=== PATIENT | male | born 1985 | race African-American/Black ===

== ENCOUNTER 2021-09-30 10:06 | Emergency (ER) | payer OTHER ==
[2021-09-30] MEDS ORDERED: METHYLPREDNISOLONE 125 MG INJ ONE (10:30)
[2021-09-30 11:27] VITALS: BP 136/88; TEMP 98; O2SAT 99
--- NOTE | 2021-10-02 09:23 | EDPHYS ---
Physician Documentation [facility] Name: Sundeep Gonzalez Age: 36 yrs Sex: Male : 1985 Arrival Date: 09/30/2021 Time: 10:09 Bed 15 Private MD: ED Physician Antoine Ga HPI: 09/30 10:32 This 36 yrs old Black Male presents to ER via Ambulatory with complaints of Allergic rn Reaction, Insect Bite. 10:32 This 36 yrs old Black Male presents to ER via Ambulatory with complaints of Allergic rn Reaction, Insect Bite. 10:32 The patient presents with localized swelling. Onset: The symptoms/episode rn began/occurred just prior to arrival. Associated signs and symptoms: Pertinent positives: swelling, Pertinent negatives: abdominal pain, chest pain, dysphagia, fever, hives, rash, shortness of breath, Syncope vomiting. Severity of symptoms: At their worst the symptoms were mild in the emergency department the symptoms are unchanged. The patient has not experienced similar symptoms in the past. The patient has not recently seen a physician. 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 No drainage. No other hives/rash/itching/sob/chest pain/vomiting.. Historical: - Allergies: 10:19 No Known Allergies; bp - Home Meds: 10:19 None [Active]; bp - PMHx: 10:19 None; bp - Immunization history:: Adult Immunizations up to date. - Social history:: Smoking status: Patient denies any tobacco usage or history of. Smoking status: Smoking status: . - Family history:: not pertinent. ROS: 10:32 Constitutional: Negative for fever, chills, and weight loss, Eyes: Negative for injury, rn pain, redness, and discharge, Neck: Negative for injury, pain, and swelling, Cardiovascular: Negative for chest pain, palpitations, and edema, Respiratory: Negative for shortness of breath, cough, wheezing, and pleuritic chest pain, Abdomen/GI: Negative for abdominal pain, nausea, vomiting, diarrhea, and constipation, Back: Negative for injury and pain, MS/Extremity: + swelling to right arm Skin: Denies rash or hives Neuro: Negative for headache, weakness, numbness, tingling, and seizure. Exam: 10:32 Constitutional: This is a well developed, well nourished patient who is awake, alert, rn and in no acute distress. Ambulatory to room without assistance or difficulty. Head/Face: Normocephalic, atraumatic. Eyes: Periorbital areas with no swelling, redness, or edema. ENT: No stridor Cardiovascular: Regular rate and rhythm. No pulse deficits. Respiratory: Speaking full sentences, unlabored. No increased work of breathing, no retractions or nasal flaring. Skin: Warm, dry, no erythema, no urticaria MS/ Extremity: Pulses equal, no cyanosis. Neurovascular intact. Full, normal range of motion. Equal circumference. 3cm area of induration and central swelling, no foreign body identified. No drainage, no streaking. Neuro: Awake and alert, GCS 15 Vital Signs: 10:18 BP 136 / 88; Pulse 70; Resp 16; Temp 98; Pulse Ox 99% ; Weight 74.84 kg; Height 6 ft. 1 bp in. (185.42 cm); 10:18 Body Mass Index 21.77 (74.84 kg, 185.42 cm) bp MDM: 10:11 Patient medically screened. rn 10:32 Differential diagnosis: localized allergic reaction, insect bite. Data reviewed: vital rn signs, nurses notes, and as a result, I will discharge patient. Counseling: I had a detailed discussion with the patient and/or guardian regarding: the historical points, exam findings, and any diagnostic results supporting the discharge/admit diagnosis, the need for outpatient follow up, to return to the emergency department if symptoms worsen or persist or if there are any questions or concerns that arise at home. Special discussion: I discussed with the patient/guardian in detail that at this point there is no indication for admission to the hospital. It is understood, however, that if the symptoms persist or worsen the patient needs to return immediately for re-evaluation. Administered Medications: 10:26 Drug: SOLU-Medrol (methylPREDNISolone sodium succinate) 125 mg Route: IM; Site: right bp gluteus; 11:05 Follow up: Response: No adverse reaction bp Disposition Summary: 09/30/21 10:37 Discharge Ordered Location: Home rn Problem: new rn Symptoms: have improved rn Condition: Stable rn Diagnosis - Insect bite (nonvenomous) of right forearm rn - Localized allergic reaction rn Followup: rn - With: Private Physician - When: As needed - Reason: Recheck today's complaints, Re-evaluation by your physician Discharge Instructions: - Discharge Summary Sheet rn - Insect Bite, Adult rn Forms: - Medication Reconciliation Form rn - Thank You Letter 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
--- NOTE | 2021-10-02 09:23 | ER ---
Nurse's Notes [facility] Name: Sundeep Gonzalez Age: 36 yrs Sex: Male : 1985 Arrival Date: 09/30/2021 Time: 10:09 Bed 15 Private MD: Diagnosis: Insect bite (nonvenomous) of right forearm;Localized allergic reaction Presentation: 09/30 10:18 Chief complaint: Patient states: INSECT STING TO R FA. Coronavirus screen: At this bp time, the client does not indicate any symptoms associated with coronavirus-19. Ebola Screen: No symptoms or risks identified at this time. Onset: The symptoms/episode began/occurred just prior to arrival. Anaphylaxis evaluation, no signs or symptoms of anaphylaxis were noted. Initial Sepsis Screen: Does the patient meet any 2 criteria? No. Patient's initial sepsis screen is negative. Does the patient have a suspected source of infection? No. Patient's initial sepsis screen is negative. Risk Assessment: Do you want to hurt yourself or someone else? Patient reports no desire to harm self or others. Onset of symptoms was September 30, 2021. 10:18 Method Of Arrival: Ambulatory bp 10:18 Acuity: JAMEY 4 bp Triage Assessment: 10:19 General: Appears in no apparent distress. comfortable, Behavior is calm, cooperative, bp appropriate for age. Pain: Complains of pain in right arm. EENT: No deficits noted. Neuro: No deficits noted. Cardiovascular: No deficits noted. Respiratory: No deficits noted. GI: No signs and/or symptoms were reported involving the gastrointestinal system. : No signs and/or symptoms were reported regarding the genitourinary system. Derm: Wound noted right arm. Musculoskeletal: No deficits noted. Historical: - Allergies: 10:19 No Known Allergies; bp - Home Meds: 10:19 None [Active]; bp - PMHx: 10:19 None; bp - Immunization history:: Adult Immunizations up to date. - Social history:: Smoking status: Patient denies any tobacco usage or history of. Smoking status: Smoking status: . - Family history:: not pertinent. Screenin:20 Abuse screen: Denies threats or abuse. Denies injuries from another. Nutritional bp screening: No deficits noted. Tuberculosis screening: No symptoms or risk factors identified. Fall Risk None identified. Assessment: 10:20 General: SEE TRIAGE NOTE. Respiratory: Airway is patent Respiratory effort is even, bp unlabored, Breath sounds are clear bilaterally. 11:00 Reassessment: PT D/C HOME AMBULATORY, DX WITH NONVENOMOUS INSECT BITE. bp Vital Signs: 10:18 BP 136 / 88; Pulse 70; Resp 16; Temp 98; Pulse Ox 99% ; Weight 74.84 kg; Height 6 ft. 1 bp in. (185.42 cm); 10:18 Body Mass Index 21.77 (74.84 kg, 185.42 cm) bp ED Course: 10:09 Patient arrived in ED. am2 10:11 Karan Becerril, RN is Primary Nurse. bp 10:11 Antoine Ga MD is Attending Physician. rn 10:19 Triage completed. bp 10:19 Arm band placed on. bp 10:20 Patient has correct armband on for positive identification. Bed in low position. Call bp light in reach. Side rails up X2. 11:00 No provider procedures requiring assistance completed. Patient did not have IV access bp during this emergency room visit. Administered Medications: 10:26 Drug: SOLU-Medrol (methylPREDNISolone sodium succinate) 125 mg Route: IM; Site: right bp gluteus; 11:05 Follow up: Response: No adverse reaction bp Medication: 10:20 VIS not applicable for this client. bp Outcome: 10:37 Discharge ordered by . rn 11:00 Discharged to home ambulatory. bp 11:00 Condition: stable 11:00 Discharge instructions given to patient, Instructed on discharge instructions, follow up and referral plans. medication usage, Demonstrated understanding of instructions, follow-up care, medications, Prescriptions given X 2. 11:05 Patient left the ED. bp Signatures: Antoine Ga MD MD rn Moreno, Amanda am2 Karan Becerril, RN RN bp
== END 2021-09-30 11:05 | disposition home or self-care (01) ==
LOC: ER 10:06
DX: S40.861A Insect bite (nonvenomous) of right upper arm, initial encounter (principal); R22.31 Localized swelling, mass and lump, right upper limb
CPT/HCPCS: 96372; 99283; J2930

== ENCOUNTER 2021-10-15 17:04 | Emergency (ER) | payer OTHER ==
--- NOTE | 2021-10-15 17:42 | ER ---
Nurse's Notes [facility] Name: Sundeep Gonzalez Age: 36 yrs Sex: Male : 1985 Arrival Date: 10/15/2021 Time: 17:06 Bed 10 Private MD: Diagnosis: Insect bite (nonvenomous) of hand Presentation: 10/15 17:39 Chief complaint: Stung by unknown insect 2-3 hours ago, c/o pain and swelling to left hb hand. 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 Coronavirus screen: At this time, the client does not indicate any symptoms associated with coronavirus-19. Ebola Screen: No symptoms or risks identified at this time. Risk Assessment: Do you want to hurt yourself or someone else? Patient reports no desire to harm self or others. Onset of symptoms was October 15, 2021. 17:39 Method Of Arrival: Ambulatory hb 17:39 Acuity: JAMEY 4 hb 17:45 Initial Sepsis Screen: Does the patient meet any 2 criteria? No. Patient's initial iw sepsis screen is negative. Does the patient have a suspected source of infection? No. Patient's initial sepsis screen is negative. Triage Assessment: 18:01 General: Behavior is calm, cooperative. iw 18:45 Bite description: bite sustained to left hand by an unknown animal, animal information: iw vaccination(s) is not applicable. 10/16 10:53 General: Appears in no apparent distress. iw Historical: - Allergies: 10/15 17:40 No Known Allergies; hb - Immunization history:: Adult Immunizations. - Social history:: Smoking status: . Screenin:00 Abuse screen: Denies threats or abuse. Denies injuries from another. Nutritional iw screening: No deficits noted. Tuberculosis screening: No symptoms or risk factors identified. Fall Risk None identified. Assessment: 17:45 General: Appears in no apparent distress. Behavior is calm, cooperative. Pain: iw Complains of pain in left hand. Neuro: Level of Consciousness is awake, alert, obeys commands, Oriented to person, place, time, situation, Moves all extremities. Full function. Derm: Skin is intact, is healthy with good turgor, Skin is pink, warm \T\ dry. normal. Musculoskeletal: Range of motion: intact in all extremities. Vital Signs: 17:39 BP 124 / 84; Pulse 67; Resp 16; Temp 98; Pulse Ox 100% on R/A; Weight 74.84 kg; Height iw 6 ft. 1 in. (185.42 cm); Pain 8/10; 17:39 Body Mass Index 21.77 (74.84 kg, 185.42 cm) iw ED Course: 17:06 Patient arrived in ED. rg4 17:08 [facility] jl9 17:08 Castro An DO is Attending Physician. jl9 17:40 Triage completed. hb 17:40 Arm band placed on. hb 17:40 Patient has correct armband on for positive identification. iw 17:51 Basia Lan, RN is Primary Nurse. iw 18:01 No provider procedures requiring assistance completed. Patient did not have IV access iw during this emergency room visit. Administered Medications: 18:01 Drug: Benadryl (diphenhydrAMINE) 50 mg Route: IM; Site: left deltoid; iw 18:20 Follow up: Response: No adverse reaction iw 18:01 Drug: SOLU-Medrol (methylPREDNISolone sodium succinate) 125 mg Route: IM; Site: right iw deltoid; 18:30 Follow up: Response: No adverse reaction iw Medication: 18:00 VIS not applicable for this client. iw Outcome: 17:42 Discharge ordered by . jovita 18:00 Condition: good iw 18:00 Discharged to home ambulatory. iw 18:00 Discharge instructions given to patient, Instructed on discharge instructions, follow up and referral plans. medication usage, Demonstrated understanding of instructions, follow-up care, Prescriptions given X 18:01 Patient left the ED. iw Signatures: Basia Lan RN RN Tomeka Covarrubias RN RN hb Garcia, Rubi [facility] Janusz Montalvo Janae Corrections: (The following items were deleted from the chart) 10/16 11:01 0816 17:39 BP 124 / 124; Pulse 67bpm; Resp 16bpm; Pulse Ox 100% RA; Temp 98F; 74.84 iw kg; Height 6 ft. 1 in.; BMI: 21.7; Pain 8/10; hb
--- NOTE | 2021-10-15 17:42 | EDPHYS ---
Physician Documentation [facility] Name: Sundeep Gonzalez Age: 36 yrs Sex: Male : 1985 Arrival Date: 10/15/2021 Time: 17:06 Bed 10 Private MD: ED Physician Castro An HPI: 10/15 17:21 This 36 yrs old Black Male presents to ER via Ambulatory with complaints of Insect jl9 Bite, Hand Swelling. 17:21 This 36 yrs old Black Male presents to ER via Unassigned with complaints of Insect Bite jl9 at work, L Hand Swelling. 17:21 Onset: The symptoms/episode began/occurred today. jl9 Historical: - Allergies: 17:40 No Known Allergies; hb - Immunization history:: Adult Immunizations. - Social history:: Smoking status: . ROS: 17:21 Constitutional: Negative for fever, chills, and weight loss, Eyes: Negative for injury, jl9 pain, redness, and discharge, ENT: Negative for injury, pain, and discharge, Neck: Negative for injury, pain, and swelling, Cardiovascular: Negative for chest pain, palpitations, and edema, Respiratory: Negative for shortness of breath, cough, wheezing, and pleuritic chest pain, Abdomen/GI: Negative for abdominal pain, nausea, vomiting, diarrhea, and constipation, Back: Negative for injury and pain, : Negative for injury, bleeding, discharge, and swelling, MS/Extremity: Negative for injury and deformity. 17:21 Neuro: Negative for headache, weakness, numbness, tingling, and seizure, Psych: Negative for depression, anxiety, suicide ideation, homicidal ideation, and hallucinations, Allergy/Immunology: Negative for hives, rash, and allergies, Endocrine: Negative for neck swelling, polydipsia, polyuria, polyphagia, and marked weight changes, Hematologic/Lymphatic: Negative for swollen nodes, abnormal bleeding, and unusual bruising. 17:21 Skin: Positive for erythema, swelling, 3x3cm localized allergic reaction/ swelling to left hand. . Exam: 17:23 Constitutional: This is a well developed, well nourished patient who is awake, alert, jl9 and in no acute distress. Head/Face: Normocephalic, atraumatic. Eyes: Pupils equal round and reactive to light, extra-ocular motions intact. Lids and lashes normal. Conjunctiva and sclera are non-icteric and not injected. Cornea within normal limits. Periorbital areas with no swelling, redness, or edema. ENT: Mucous membranes moist. Neck: Trachea midline, no thyromegaly or masses palpated, and no cervical lymphadenopathy. Supple, full range of motion without nuchal rigidity, or vertebral point tenderness. No Meningismus. Chest/axilla: Normal chest wall appearance and motion. Nontender with no deformity. No lesions are appreciated. Cardiovascular: Regular rate and rhythm with a normal S1 and S2. No gallops, murmurs, or rubs. Normal PMI, no JVD. No pulse deficits. Respiratory: Lungs have equal breath sounds bilaterally, clear to auscultation and percussion. No rales, rhonchi or wheezes noted. No increased work of breathing, no retractions or nasal flaring. Abdomen/GI: Soft, non-tender, with normal bowel sounds. No distension or tympany. No guarding or rebound. No evidence of tenderness throughout. Back: No spinal tenderness. No costovertebral tenderness. Full range of motion. 17:23 MS/ Extremity: Pulses equal, no cyanosis. Neurovascular intact. Full, normal range of motion. Neuro: Awake and alert, GCS 15, oriented to person, place, time, and situation. Cranial nerves II-XII grossly intact. Motor strength 5/5 in all extremities. Sensory grossly intact. Cerebellar exam normal. Normal gait. Psych: Awake, alert, with orientation to person, place and time. Behavior, mood, and affect are within normal limits. 17:23 Skin: Appearance: swelling, that are mild, abscess, cellulitis, induration, injury, on the left hand. Vital Signs: 17:39 BP 124 / 84; Pulse 67; Resp 16; Temp 98; Pulse Ox 100% on R/A; Weight 74.84 kg; Height iw 6 ft. 1 in. (185.42 cm); Pain 8/10; 17:39 Body Mass Index 21.77 (74.84 kg, 185.42 cm) iw MDM: 17:08 Patient medically screened. 9 17:23 Data reviewed: vital signs, nurses notes. 9 Administered Medications: 18:01 Drug: Benadryl (diphenhydrAMINE) 50 mg Route: IM; Site: left deltoid; iw 18:20 Follow up: Response: No adverse reaction iw 18:01 Drug: SOLU-Medrol (methylPREDNISolone sodium succinate) 125 mg Route: IM; Site: right iw deltoid; 18:30 Follow up: Response: No adverse reaction iw Disposition: 17:40 Co-signature as Attending Physician, Castro An DO I was immediately available on-site ms3 in the Emergency Department for consultation in the care of the patient. . Disposition Summary: 10/15/21 17:42 Discharge Ordered Location: Home jl9 Condition: Stable jl9 Diagnosis - Insect bite (nonvenomous) of hand jl9 Followup: jl9 - With: Private Physician - When: 1 - 2 days - Reason: Recheck today's complaints, Continuance of care, Re-evaluation by your physician Discharge Instructions: - Discharge Summary Sheet jl9 - Insect Bite, Adult, [id number] jl9 Forms: - Medication Reconciliation Form jl9 - Thank You Letter jl9 - Antibiotic Education jl9 - Prescription Opioid Use jl9 Signatures: Basia Lan RN RN iw Baxter, Heather, RN RN hb Sims, Marcus, DO DO ms3 Janusz Montalvo jl9
[2021-10-15] MEDS ORDERED: DIPHENHYDRAMINE 50 MG/ML VIAL ONE (18:03)
[2021-10-15] MEDS ORDERED: METHYLPREDNISOLONE 125 MG INJ ONE (18:03)
[2021-10-15 19:12] VITALS: BP 124/124; TEMP 98; O2SAT 100
== END 2021-10-15 18:01 | disposition home or self-care (01) ==
LOC: ER 17:04
DX: S60.562A Insect bite (nonvenomous) of left hand, initial encounter (principal)
CPT/HCPCS: J1200; J2930; 96372; 99283

== ENCOUNTER 2021-10-22 17:21 | Emergency (ER) | payer OTHER ==
--- NOTE | 2021-10-22 18:30 | ER ---
Nurse's Notes [facility] Name: Sundeep Gonzalez Age: 36 yrs Sex: Male : 1985 Arrival Date: 10/22/2021 Time: 17:22 Bed Waiting Private MD: Diagnosis: Insect bites Presentation: 10/22 17:34 Chief complaint: Patient states: "something has been biting me up all day at work, but [facility] I don't see what it is and now I have these whelps and they hurt" ... pt endorses these whelps all appeared today; safety team at work gave him Benadryl and ibuprofen but no relief. Last took medicine at 1400. Coronavirus screen: Vaccine status: Patient reports being unvaccinated. Client denies travel out of the [place] in the last 14 days. Ebola Screen: Patient negative for fever greater than or equal to 101.5 degrees Fahrenheit, and additional compatible Ebola Virus Disease symptoms Patient denies exposure to infectious person. Patient denies travel to an Ebola-affected area in the 21 days before illness onset. Initial Sepsis Screen: Does the patient meet any 2 criteria? No. Patient's initial sepsis screen is negative. Does the patient have a suspected source of infection? No. Patient's initial sepsis screen is negative. Risk Assessment: Do you want to hurt yourself or someone else? Patient reports no desire to harm self or others. Onset of symptoms was October 22, 2021. 17:34 Method Of Arrival: Ambulatory [facility] 17:34 Acuity: JAMEY 3 5 Triage Assessment: 17:37 Bite description: bite sustained to face, scalp, right eye and right arm by an unknown [facility] animal, animal information: vaccination(s) is not applicable. General: Appears in no apparent distress. slender, well groomed, Behavior is calm, cooperative, appropriate for age. Pain: Complains of pain in face, scalp and right arm. Historical: - Allergies: 17:37 No Known Allergies; [facility] - Home Meds: 17:37 None [Active]; [facility] - Immunization history:: Adult Immunizations up to date. - Social history:: Smoking status: Patient denies any tobacco usage or history of. Screenin:38 Abuse screen: Denies threats or abuse. Denies injuries from another. Nutritional [facility] screening: No deficits noted. Tuberculosis screening: No symptoms or risk factors identified. Fall Risk None identified. Vital Signs: 17:34 BP 165 / 72; Pulse 84; Resp 16; Temp 98.8; Pulse Ox 100% ; Weight 74.84 kg; Height 6 [facility] ft. 1 in. (185.42 cm); Pain 10/10; 17:34 Body Mass Index 21.77 (74.84 kg, 185.42 cm) [facility] ED Course: 17:22 Patient arrived in ED. am2 17:37 Triage completed. [facility] 17:37 Arm band placed on right wrist. [facility] 17:38 No provider procedures requiring assistance completed. [facility] 17:40 Anuj Haines PA is PHCP. [facility] 17:40 Cristian Wilcox MD is Attending Physician. [facility] 19:17 Tomeka Covarrubias, RN is Primary Nurse. Administered Medications: No medications were administered Outcome: 18:30 Discharge ordered by MD. [facility] 19:38 Patient left the ED. [facility] Signatures: Anuj Haines PA PA Tomeka Nelson, RN RN Latonya Causey am2 Missy Pastrana, RN RN [facility]
--- NOTE | 2021-10-22 18:30 | EDPHYS ---
Physician Documentation [facility] Name: Sundeep Gonzalez Age: 36 yrs Sex: Male : 1985 Arrival Date: 10/22/2021 Time: 17:22 Bed Waiting Private MD: ED Physician Cristian Wilcox HPI: 10/22 17:55 This 36 yrs old Black Male presents to ER via Ambulatory with complaints of Insect Bite jmm - arm/back of neck/face/head. 17:55 36-year-old male with no chronic medical condition presents emerged part with multiple jmm insect bites to the arms face and the scalp. Patient states it is painful and also describes the discomfort as itchy. Denies fever or chills. Denies vomiting.. Historical: - Allergies: 17:37 No Known Allergies; [facility] - Home Meds: 17:37 None [Active]; [facility] - Immunization history:: Adult Immunizations up to date. - Social history:: Smoking status: Patient denies any tobacco usage or history of. ROS: 17:55 Constitutional: Negative for fever, chills, and weight loss, Cardiovascular: Negative jmm for chest pain, palpitations, and edema, Respiratory: Negative for shortness of breath, cough, wheezing, and pleuritic chest pain. 17:55 Skin: Positive for swelling. 17:55 All other systems are negative. Exam: 17:55 Constitutional: This is a well developed, well nourished patient who is awake, alert, jmm and in no acute distress. 17:55 Eyes: EOMI, no conjunctival erythema appreciated ENT: Moist Mucus Membranes Neck: Trachea midline, Supple Chest/axilla: Normal chest wall appearance and motion. Cardiovascular: Regular rate and rhythm. No edema appreciated Respiratory: Normal respirations, no respiratory distress appreciated Abdomen/GI: Non distended Back: Normal ROM 17:55 Head/face: Multiple papular lesions consistent with insect bites noted to the scalp. 17:55 Skin: Multiple raised lesions noted to the right and left arm, neck, face, and scalp. 17:55 Neuro: Orientation: is normal, Mentation: is normal, Memory: is normal. 17:55 Psych: Behavior/mood is pleasant, cooperative. Vital Signs: 17:34 BP 165 / 72; Pulse 84; Resp 16; Temp 98.8; Pulse Ox 100% ; Weight 74.84 kg; Height 6 [facility] ft. 1 in. (185.42 cm); Pain 10/10; 17:34 Body Mass Index 21.77 (74.84 kg, 185.42 cm) [facility] MDM: 17:56 Patient medically screened. [facility] 18:29 Data reviewed: vital signs, nurses notes. Counseling: I had a detailed discussion with [facility] the patient and/or guardian regarding: the historical points, exam findings, and any diagnostic results supporting the discharge/admit diagnosis, the need for outpatient follow up, to return to the emergency department if symptoms worsen or persist or if there are any questions or concerns that arise at home. ED course: Patient is alert nontoxic in appearance NAD. Patient advised follow-up PCP and otherwise given strict return precautions. Patient understood agrees plan of care.. Administered Medications: No medications were administered Disposition: 10/23 10:30 Co-signature as Attending Physician, Cristian Wilcox MD I agree with the assessment and kdr plan of care. Disposition Summary: 10/22/21 18:30 Discharge Ordered Location: Home [facility] Condition: Stable [facility] Diagnosis - Insect bites [facility] Followup: [facility] - With: Private Physician - When: 2 - 3 days - Reason: Recheck today's complaints, Continuance of care, Re-evaluation by your physician Discharge Instructions: - Discharge Summary Sheet [facility] - Insect Bite, Adult [facility] Forms: - Medication Reconciliation Form [facility] - Thank You Letter [facility] - Antibiotic Education [facility] - Prescription Opioid Use [facility] Prescriptions: - Doxycycline Hyclate 100 mg Oral Tablet - take 1 tablet by ORAL route every 12 hours; 20 tablet; Refills: 0, Product [facility] Selection Permitted - Hydroxyzine HCl 25 mg Oral Tablet - take 1 tablet by ORAL route every 6 hours As needed; 30 tablet; Refills: 0, [facility] Product Selection Permitted - Prednisone 20 mg Oral Tablet - take 3 tablets by ORAL route once daily for 5 days; 15 tablet; Refills: 0, [facility] Product Selection Permitted Signatures: Cristian Wilcox MD MD [facility] Anuj Haines PA PA Missy Freeman, RN RN [facility]
[2021-10-22] MEDS ORDERED: dexAMETHasone 10 MG/ML VIAL ONE ×2 (19:27→19:29)
[2021-10-22 22:45] VITALS: BP 165/72; TEMP 98.8; O2SAT 100
== END 2021-10-22 19:38 | disposition home or self-care (01) ==
LOC: ER 17:21
DX: S00.06XA Insect bite (nonvenomous) of scalp, initial encounter (principal); S40.862A Insect bite (nonvenomous) of left upper arm, initial encounter; S40.861A Insect bite (nonvenomous) of right upper arm, initial encounter; S00.86XA Insect bite (nonvenomous) of other part of head, initial encounter
CPT/HCPCS: J1100